=== PATIENT | male | born 1995 | race Caucasian/White ===

== ENCOUNTER 2017-08-14 14:14 | Observation (INO) | payer SELFPAY ==
[~2017-08-14] VITALS: Ht 165.1 cm; Wt 86.2 kg
[2017-08-14] MEDS: ALUM & MAG HYDROX-SIMETH LIQ(MAALOX) 30 ML PO ONE ×2 (14:30→14:33)
[2017-08-14] MEDS: LIDOCAINE VISCOUS 2% 15ML UD MT ONE ×2 (14:30→14:33)
[2017-08-14] MEDS: DONNATAL 5ml ORAL Elix (BELLADONNA ALK-PHENOBARB) PO ONE ×2 (14:30→14:33)
[2017-08-14] MEDS ORDERED: PANTOPRAZOLE 40 MG TAB PO ONE (14:30)
[2017-08-14 15:32] LABS: Basophils # (auto) 0.1 uL; Eosinophils # (auto) 0 uL; Hematocrit 52.2 % (41.0-53.0); Monocytes # (auto) 0.8 uL
[2017-08-14 15:34] LABS: Basophils % (auto) 0.5 % (0.0-2.0); Hemoglobin 17.8 g/dL (13.5-17.5); Lymphocytes # (auto) 0.5 uL; Lymphocytes % (auto) 2.3 % (10.0-50.0); Mean Corpuscular Hemoglobin 30.8 pg (28.0-32.0); Mean Corpuscular Hgb Conc. 34.2 g/dL (32.0-36.0); Mean Corpuscular Volume 90.1 fL (80.0-100.0); Monocytes % (auto) 3.6 % (0.0-12.0); Neutrophils # (auto) 21.2 uL; Neutrophils % (auto) 93.6 % (37.0-80.0); Nucleated Red Blood Cells % 0.1 %; Platelet Count (auto) 281 10^3/uL (140-450); Red Blood Cells 5.79 10^6/uL (4.5-5.90); White Blood Cell 22.6 10^3/uL (4.4-10.8)
[2017-08-14 15:41] LABS: Albumin 4.6 g/dL (3.4-5.0); Bilirubin, Total 1.1 mg/dL (0.2-1.0); Calcium 9.6 mg/dL (8.5-10.1); Potassium 3.9 mmol/L (3.5-5.1); Total Protein 8.2 g/dL (6.4-8.2)
[2017-08-14] MEDS ORDERED: IOHEXOL 300 MG/ML 100ML BOTTLE IJ ONE (16:59)
[2017-08-14] MEDS ORDERED: ONDANSETRON HCL 4 MG/2 ML VIAL IV ONE (17:00)
[2017-08-14] MEDS ORDERED: SODIUM CHLORIDE 0.9% 1,000 ML IV ONE ×2 (17:00→18:15)
[2017-08-14] MEDS ORDERED: MORPHINE SULFATE 4 MG/ML SYR/VIAL IV ONE (17:00)
[2017-08-14] MEDS ORDERED: MORPHINE SULFATE INJECTION 1 ML ONE (17:01)
[2017-08-14 17:42] LABS: INR 1.09 (0.9-1.15); Partial Thromboplastin Time 26.5 sec (22.64-33.71); Prothrombin Time 11.9 sec (9.37-12.3)
[2017-08-14] MEDS ORDERED: PROMETHAZINE HCL 25 MG/ML 1ML IV ONE (18:00)
[2017-08-14] MEDS ORDERED: PROMETHAZINE HCL 25 MG/ML 1ML ONE (18:02)
[2017-08-14 18:26] LABS: Lactic Acid w/Reflex 3.3 mmol/L (0.4-2.0)
[2017-08-15 04:08] VITALS: BP 112/67
== END 2017-08-15 05:52 | disposition left against medical advice (07) | DRG 392 ==
LOC: ER 14:14 → OVERFLOW 17:01 → ER 08-15 05:48
PROVIDERS: ADMIT Family Medicine; ATTEND Family Medicine
DX: R10.9 Unspecified abdominal pain (principal); F17.210 Nicotine dependence, cigarettes, uncomplicated; R11.2 Nausea with vomiting, unspecified; Z82.49 Family history of ischemic heart disease and other diseases of the circulatory system
CPT/HCPCS: 36415; 71045; 74177; 80053; 82150; 83605; 83690; 83735; 85025; 85610; 85730; 87040; 96361; 96374; 96375; 99285; G0378; J2270; J2550; J7030; Q9967